=== PATIENT | male | born 1990 | race Caucasian/White ===

== ENCOUNTER → 2020-01-28 16:45 | Outpatient (CLI) | payer BC, SELFPAY ==
--- NOTE | ~2020-01-28 | XR_ITS ---
EXAMINATION: XR knee RT 3V DATE: 01/28/2020 16:58 INDICATION: Right knee pain TECHNIQUE: Three views of the right knee were obtained. COMPARISON: None. FINDINGS: Alignment is normal. No fracture or osteochondral lesion. Joint spaces are normal with no e rosions. A moderate size knee joint effusion is present. Soft tissues are unremarkable. IMPRESSION: 1. Moderate-sized joint effusion without acute osseous abnormality. Reviewed, dictated and finalized at location A.
== END ==
PROVIDERS: Visit Provider Nurse Practitioner Family
DX: S89.90XA Unspecified injury of unspecified lower leg, initial encounter (principal); X58.XXXA Exposure to other specified factors, initial encounter; M25.461 Effusion, right knee
CPT/HCPCS: 73562

== ENCOUNTER → 2022-01-14 09:27 | Outpatient (CLI) | payer BC, SELFPAY ==
--- NOTE | ~2022-01-14 | XR_ITS ---
EXAMINATION: XR knee RT 3V DATE: 01/14/2022 09:53 INDICATION: Right knee pain. TECHNIQUE: 3 views of right knee including standing views were obtained. COMPARISON: Right knee radiographs 01/28/2020 FINDINGS: Bone alignment is normal. No fracture. There is mild tricompartmental osteoarthritis charac terized by tiny osteophytes. No joint space narrowing. There is a small knee joint effusion. IMPRESSION: 1. Mild right knee osteoarthritis. 2. Small right knee joint effusion. Reviewed, dictated and finalized at location A. 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
== END ==
PROVIDERS: PCP Family Medicine; Visit Provider Nurse Practitioner Family
DX: G89.29 Other chronic pain (principal); M25.561 Pain in right knee; M17.11 Unilateral primary osteoarthritis, right knee; M25.461 Effusion, right knee
CPT/HCPCS: 73562

== ENCOUNTER 2023-12-08 08:19 | Outpatient (CLI) | payer BC, SELFPAY ==
--- NOTE | 2023-12-26 12:00 | WPDHOMESLEEP ---
Sleep Study - Home Unattended Date of Study: 12/08/23 Ordering Provider: Boyd Henry MD Interpreting Provider: Julia Stovall, DO Home Sleep Study Type: Watch PAT Height: 1.78 m Weight: 108.862 kg Body Mass Index: 34.4 Neck Circumference (inches): 16.5 [place]: 4 Reason for Sleep Study Unrefreshing sleep Sleep History The patient is a 33-year-old male with anxiety obesity and history of tobacco use that had a sleep study ordered by his primary care physician for evaluation of sleep apnea. The patient denies awakening from sleep short of breath. He occasionally awakens at night with heartburn, belching or cough. He rarely snores and is never loud enough that others complain. He occasionally has trouble sleeping when he has a cold. He denies waking up gasping for air throughout the night. He denies having breathing problems at night observed by himself or others. He denies sweating excessively at night. He denies having heart palpitations or irregular heartbeats during the night. He rarely falls asleep during the day and never while driving. He denies cataplexy. He occasionally has trouble at school or work due to sleepiness. He rarely feels unable to move while waking up or falling asleep. He occasionally experiences vivid dreamlike scenes upon awakening or falling asleep. He denies feeling afraid of going to sleep. He denies having nightmares. He occasionally remembers his dreams. He frequently has thoughts racing through his mind. He occasionally feels sad, depressed and anxious. He rarely has muscular tension. He rarely notices parts of his body jerk. He rarely kicks during the night. He denies having crawling and aching feelings in his legs and denies having leg pain during the he denies grinding his teeth during sleep but denies awakening with morning jaw pain. He is occasionally bothered by pain during the day but never awakened by pain during the night. He frequently wakes up feeling stiff in the morning. He occasionally wakes up with sore or achy muscles. He occasionally wakes up with pain in the neck, spine and other joints. He goes to bed at 9:00 p.m. on both weekdays and weekends. It takes him 30 minutes to fall asleep. He wakes up 2-3 times throughout the night to use the restroom or get a drink. He is able to fall back asleep within a few minutes. He wakes up at 5:00 a.m. on both weekdays and weekends. He typically gets 6-8 hours of sleep per night. He does not stay in bed after waking up in the morning. He currently lives with his and BP. He denies consuming any caffeinated beverages within 2 hours of bedtime. He denies engaging in physical exercise before bedtime. He will watch television before falling asleep. He denies taking naps in afternoon or the evening. He consumes 600 mg of caffeine per day. He is a former smoker. He denies recreational drug use. [facility] Past Medical History Medical History Apnea BMI 26.0-26.9,adult BMI over 35 Dietary counseling and surveillance (02/01/19) Elevated LDL cholesterol level Physical exam Screening for diabetes mellitus Screening for thyroid disorder Screening, lipid Vitamin D deficiency Family History Family History Mother Cerebrovascular accident Breast cancer Grandparent Family history of coronary artery disease Father Hypertension Sleep apnea Anxiety Sibling Anxiety Social History Social History Smoking status: Never smoker Tobacco type: cigarettes Second hand tobacco smoke exposure: No Alcohol intake: current Substance use: former Substance use type: does not use and marijuana Do You Feel Safe in your Home?: Yes Lack of Transportation: No Lack of Food: Never True Current Housing: I Have Housing Concerned About [facility] [facility]
[2023-12-26 12:09] VITALS: BMI 34.4
== END 2023-12-12 08:20 | disposition home or self-care (01) ==
PROVIDERS: PCP Family Medicine; Visit Provider Family Medicine
DX: G47.33 Obstructive sleep apnea (adult) (pediatric) (principal)
CPT/HCPCS: 95800